=== PATIENT | male | born 1965 | race Caucasian/White ===

== ENCOUNTER → 2022-04-12 | Outpatient (CLI) | payer MEDICARE ==
--- NOTE | 2022-04-12 11:56 | Diagnostic Imaging Report ---
HIP, RIGHT, 2 VIEWS INDICATION: Right hip pain COMPARISON: None available. TECHNIQUE: 2 views right hip FINDINGS: Noncemented total hip arthroplasty has components in good alignment. Lucency in the cortex distal to the femoral stem favors prominent vascular channel. No osteolysis. Heterotopic ossification is present cranial to the greater trochanter. IMPRESSION: Right total hip arthroplasty has no complication by radiography. Dictated by: Dictated on workstation # [id number]
== END ==
LOC: ORTHO 08:39
PROVIDERS: ATTEND Orthopaedic Surgery
DX: M25.551 Pain in right hip (principal); Z96.641 Presence of right artificial hip joint
CPT/HCPCS: 20610; 73502; G0463

== ENCOUNTER → 2022-07-26 | Outpatient (CLI) | payer MEDICARE | LOC: ORTHO 10:43 | PROVIDERS: ATTEND Orthopaedic Surgery | DX: M70.61 Trochanteric bursitis, right hip (principal) | CPT/HCPCS: 20610 ==